=== PATIENT | female | born 1950 | race Two or more races ===

== ENCOUNTER 2018-06-05 17:24 | Inpatient (IN) | payer OTHER ==
[~2018-06-05] VITALS: Ht 152.4 cm; Wt 89.8 kg
[2018-06-05 17:43] VITALS: BP 116/67
[2018-06-05] MEDS ORDERED: Morphine Sulfate 4mg/ml Inj (IV USE ONLY) IVP ONE (18:00)
[2018-06-05] MEDS ORDERED: Isovue-300 100ml vial INJ PRN (18:15)
--- NOTE | 2018-06-05 18:15 | Emergency Room Report ---
History of Present Illness General Chief Complaint: General Complaint Source: Patient Present Illness HPI 68-year-old female with history of hypertension diabetes presenting with abdominal pain. Patient had an elective ventral hernia repair today, started off laparoscopic and then had to be open. After the surgery patient has had intractable pain. Was given multiple pain medications however still with a lot of pain so she was sent to the emergency room. Complaining of nausea but no vomiting. Allergies: Coded Allergies: No Known Allergies (Unverified , 06/05/18) Patient History Past Medical History: see triage record Past Surgical History: none Pertinent Family History: none Reviewed Nursing Documentation: PMH: Agreed; PSxH: Agreed Review of Systems All Other Systems: negative except mentioned in HPI Physical Exam Vital Signs Date Time Temp Pulse Resp B/P (MAP) Pulse Ox O2 Delivery O2 Flow Rate FiO2 06/05/18 17:33 97.8 92 16 128/70 98 Simple Mask 97.9 Sp02 EP Interpretation: reviewed, normal General Appearance: alert, GCS 15, non-toxic, moderate distress Head: normocephalic, atraumatic Eyes: bilateral eye normal inspection, bilateral eye PERRL, bilateral eye EOMI ENT: normal ENT inspection, normal pharynx, normal voice, moist mucus membranes Neck: normal inspection, full range of motion, supple Respiratory: normal inspection, lungs clear, normal breath sounds, no respiratory distress, no retraction, no wheezing, speaking full sentences, chest symmetrical Cardiovascular #1: normal inspection, regular rate, rhythm, no edema, normal capillary refill Cardiovascular #2: 2+ radial (R), 2+ radial (L) Gastrointestinal: other - Surgical incision with dressing in place, abdomen generalized tenderness without rigidity, however has voluntary guarding Musculoskeletal: normal inspection, back normal, normal range of motion, non- tender Neurologic: normal inspection, alert, oriented x3, responsive, motor strength/ tone normal, sensory intact, normal gait, speech normal Psychiatric: normal inspection, judgement/insight normal, memory normal Skin: normal inspection, normal color, no rash, warm/dry, well hydrated, normal turgor Medical Decision Making Diagnostic Impression: Primary Impression: Abdominal pain Additional Impression: S/P repair of ventral hernia ER Course 68-year-old female with abdominal pain, today had an elective hernia repair DDX: Postop pain versus bowel perforation versus other complication Plan: Obtain labs, ua, EKG, CXR CT ER course: Patient has been given Zofran and morphine Remained stabled in ED informed Dr Lynch from surgery abx given empirically Disposition: Patient is to be admitted to telemetry D/W hospitalist DR SHELLEY Please note that this Emergency Department Report was dictated using [employer] building technology software, occasionally this can lead to erroneous entry secondary to interpretation by the dictation equipment. EKG Diagnostic Results EP Interpretation: Yes Rate: normal Rhythm: NSR ST Segments: No acute changes ASA given to patient: No Rhythm Strip EP Interpretation: Yes Rate: 99 Rhythm: NSR, no PVCs, no ectopy Chest X-ray CXR: Ordered: Yes 1 view Indication: PAIN EP interpretation: Yes Interpretation: No consolidation, no effusion, no PTX, no acute cardiopulmonary disease Impression: No acute disease Electronically signed by Blossom Del Rosario MD Laboratory Tests Test 06/05/18 17:40 White Blood Count 19.7 K/UL (4.8-10.8) H Red Blood Count 4.67 M/UL (4.20-5.40) Hemoglobin 12.1 G/DL (12.0-16.0) Hematocrit 38.1 % (37.0-47.0) Mean Corpuscular Volume 81 FL (80-99) Mean Corpuscular Hemoglobin 25.9 PG (27.0-31.0) L Mean Corpuscular Hemoglobin Concent 31.8 G/DL (32.0-36.0) L Red Cell Distribution Width 15.5 % (11.6-14.8) H Platelet Count 276 K/UL (150-450) Mean Platelet Volume 6.3 FL (6.5-10.1) L Neutrophils (%) (Auto) % (45.0-75.0) Lymphocytes (%) (Auto) % (20.0-45.0) Monocytes (%) (Auto) % (1.0-10.0) Eosinophils (%) (Auto) % (0.0-3.0) Basophils (%) (Auto) % (0.0-2.0) Neutrophils % (Manual) Pending Lymphocytes % (Manual) Pending Platelet Estimate Pending Platelet Morphology Pending Sodium Level 138 MMOL/L (136-145) Potassium Level 4.7 MMOL/L (3.5-5.1) Chloride Level 105 MMOL/L (98-107) Carbon Dioxide Level 23 MMOL/L (21-32) Anion Gap 10 mmol/L (5-15) Blood Urea Nitrogen 20 mg/dL (7-18) H Creatinine 1.0 MG/DL (0.55-1.30) Estimate Glomerular Filtration Rate 55.1 mL/min (>60) Glucose Level 326 MG/DL (74-106) H Lactic Acid Level 2.70 mmol/L (0.4-2.0) H Calcium Level 7.9 MG/DL (8.5-10.1) L Total Bilirubin 0.3 MG/DL (0.2-1.0) Aspartate Amino Transferase (AST) 20 U/L (15-37) Alanine Aminotransferase (ALT) 16 U/L (12-78) Alkaline Phosphatase 83 U/L (46-116) Total Protein 6.7 G/DL (6.4-8.2) Albumin 3.2 G/DL (3.4-5.0) L Globulin 3.5 g/dL Albumin/Globulin Ratio 0.9 (1.0-2.7) L Lipase 103 U/L (73-393) CT/MRI/US Diagnostic Results CT/MRI/US Diagnostic Results : Imaging Test Ordered: CT ABD PELVIS Impression CT ABDOMEN & PELVIS With Contrast: Comparison: None available Bilateral lower lobe and bibasilar infiltrative and mild consolidative pulmonary opacities. Possibility of pneumonia must be considered. Postsurgical changes involving the anterior abdominal wall with midline surgical skin yuliet. Areas of subcutaneous soft tissue density and soft tissue stranding most prominent along the midline mid to lower anterior abdominal wall and left mid abdominal wall. There are multiple soft tissue gas locules identified involving the anterior abdominal wall soft tissues and minimal about region of rectus muscle on the left. Findings most likely reflect post surgical changes although infection cannot be excluded. Small amount of pneumoperitoneum which is also likely postsurgical although gastrointestinal perforation would be a differential possibility. Clinical correlation with surgical history recommended. Soft tissue stranding involving the omentum and mesentery in the mid and lower abdomen which may reflect postsurgical findings or could reflect edematous or inflammatory changes. Small amount of abdominal-pelvic free fluid. No discrete abscess collection identified. No evidence of bowel obstruction. Hepatic fatty infiltration. Mild distention of urinary bladder. Last Vital Signs Date Time Temp Pulse Resp B/P (MAP) Pulse Ox O2 Delivery O2 Flow Rate FiO2 8/21/18 18:11 96.8 06/05/18 17:43 97 19 116/67 98 Simple Mask Disposition: ADMITTED INPATIENT Condition: Serious Blossom Del Rosario M.D. Jun 05, 2018 18:15
[2018-06-05 18:24] LABS: HEMATOCRIT 38.1 % (37.0-47.0); HEMOGLOBIN 12.1 G/DL (12.0-16.0); MEAN CORPUSCULAR VOLUME 81 FL (80-99); PLATELET COUNT 276 K/UL (150-450); RED BLOOD COUNT 4.67 M/UL (4.20-5.40); RED CELL DISTRIBUTION WIDTH 15.5 % (11.6-14.8); WHITE BLOOD COUNT 19.7 K/UL (4.8-10.8)
[2018-06-05 18:27] LABS: ANION GAP 10 mmol/L (5-15); BLOOD UREA NITROGEN 20 mg/dL (7-18); CALCIUM 7.9 MG/DL (8.5-10.1); CARBON DIOXIDE 23 MMOL/L (21-32); CHLORIDE 105 MMOL/L (98-107); POTASSIUM 4.7 MMOL/L (3.5-5.1); SODIUM 138 MMOL/L (136-145)
[2018-06-05 18:31] LABS: ALANINE AMINOTRANSFERASE 16 U/L (12-78); ALBUMIN 3.2 G/DL (3.4-5.0); ALBUMIN/GLOBULIN RATIO 0.9 (1.0-2.7); ALKALINE PHOSPHATASE 83 U/L (46-116); ASPARTATE AMINO TRANSFERASE 20 U/L (15-37); BILIRUBIN,TOTAL 0.3 MG/DL (0.2-1.0)
[2018-06-05] MEDS ORDERED: Piperacillin/Tazobactam 3.375 GM in NS 55 ML IV ONE (18:45)
[2018-06-05] MEDS ORDERED: METFORMIN HCL500 M1 ORAL (19:21)
[2018-06-05] MEDS ORDERED: GLUCOTROL10 MG ORAL (19:51)
[2018-06-05] MEDS ORDERED: ACTOS30 MG ORAL (19:51)
[2018-06-05] MEDS ORDERED: METFORMIN HCL850 M1 ORAL (19:51)
[2018-06-05] MEDS ORDERED: BENAZEPRIL HCL20 MG ORAL (19:51)
[2018-06-05] MEDS ORDERED: ceFAZolin 1gm/50ml Premix 50 ML IV SCH (21:00)
[2018-06-05] MEDS: Heparin 5000 units/ml inj SUBQ SCH (22:00)
[2018-06-05 22:45] VITALS: BP 102/66
[2018-06-05] MEDS ORDERED: Morphine Sulfate 4mg/ml Inj (IV USE ONLY) IM PRN (22:45)
[2018-06-05 23:06] LABS: APPEARANCE,URINE CLEAR; BILIRUBIN, URINE NEGATIVE (NEGATIVE); COLOR,URINE PALE YELLOW; GLUCOSE, URINE (UA) 4+ (NEGATIVE); KETONES,URINE 1+ (NEGATIVE); LEUKOCYTE ESTERASE ,URINE NEGATIVE (NEGATIVE); NITRITE,URINE NEGATIVE (NEGATIVE); PH,URINE 5 (4.5-8.0); PROTEIN,URINE NEGATIVE (NEGATIVE); UROBILINOGEN,URINE NORMAL MG/DL (0.0-1.0)
[2018-06-05] MEDS ORDERED: Morphine Sulfate 2mg/ml Inj(IV/IM USE ONLY) IM PRN (23:45)
[2018-06-06] VITALS: BP 107/69
[2018-06-06] MEDS ORDERED: Levemir Flexpen SUBQ SCH (00:15)
[2018-06-06] MEDS: Morphine Sulfate 4mg/ml Inj (IV USE ONLY) IVP PRN ×3 (01:05→21:02)
[2018-06-06] MEDS: ceFAZolin sod 1 GM in NS 55 ML IVP SCH ×2 (01:31→09:11)
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
[2018-06-06 04:00] VITALS: BP 103/61
--- NOTE | 2018-06-06 05:02 | History and Physical Report ---
DATE OF ADMISSION: 06/05/2018 REASON FOR ADMISSION: Postoperative pain control. HISTORY OF PRESENT ILLNESS: This is an unfortunate female who is status post hernia surgery. The patient was supposed to undergo a laparoscopic guidance surgery, but apparently it was not able to do the surgery laparoscopically. The patient had open surgery. Postoperatively, the patient had pain, and subsequently has been transferred for evaluation and care. While being in the hospital, she was feeling good. Initially, she was nauseated. She is no longer nauseated. PAST MEDICAL HISTORY: 1. Diabetes. 2. Hypertension. 3. Obesity. MEDICATIONS: 1. Actos. 2. Metformin. PHYSICAL EXAMINATION: VITAL SIGNS: Temperature 96.8 degrees, pulse of 97, respirations 19, blood pressure 115/67, and pulse oximetry of 98% on room air. GENERAL: Not in acute distress. HEENT: Normocephalic and atraumatic. NECK: No JVD. No carotid bruit. HEART: S1 and S2. ABDOMEN: The patient has a slightly has a tinge of blood on it. Decreased bowel sounds. EXTREMITIES: No clubbing or cyanosis. LABORATORY DATA: Laboratory data obtained was reviewed. WBC 19.7, hematocrit 38.1, and platelets 276. Lactic acid is 2.7. Sodium 138, potassium 4.2, chloride 105, bicarbonate 23, BUN 20, creatinine 1.1, glucose 326, and calcium 7.9. Albumin 3.2 and lipase is 103. IMPRESSION AND PLAN: This is a 68-year-old female with history of diabetes, obesity, status post hernia surgery that was supposed to be laparoscopic, subsequently became open and has been admitted for pain control. The patient will get a CT scan to monitor the patient closely. Admitted to a monitored bed. Pain Management to see the patient and surgical consultation will be obtained if there is any surgical issue. Pain control. DVT prophylaxis with heparin. Cefazolin IV for preoperative antibiotic prophylaxis. Discussed with the ER. Diabetes. Put her on clear liquid and add as tolerated. Sliding scale will be given to the patient. IV fluids will be given to the patient. Jaret Lee M.D. DR: JULIAN JOB#: [id number] CC: BROOKS
[2018-06-06] MEDS: NovoLOG Insulin Flexpen SUBQ SCH ×4 (05:44→21:00)
[2018-06-06] MEDS: Heparin 5000 units/ml inj SUBQ SCH ×3 (06:00→22:00)
[2018-06-06 08:00] VITALS: BP 112/60
[2018-06-06 09:25] LABS: BASOPHILS % (AUTO) 0.3 % (0.0-2.0); HEMATOCRIT 34.1 % (37.0-47.0); HEMOGLOBIN 10.8 G/DL (12.0-16.0); LYMPHOCYTES % (AUTO) 8.1 % (20.0-45.0); MEAN CORPUSCULAR VOLUME 79 FL (80-99); NEUTROPHILS % (AUTO) 82.7 % (45.0-75.0); PLATELET COUNT 255 K/UL (150-450); RED CELL DISTRIBUTION WIDTH 15.6 % (11.6-14.8)
[2018-06-06 09:47] LABS: ANION GAP 11 mmol/L (5-15); BLOOD UREA NITROGEN 19 mg/dL (7-18); CALCIUM 7.9 MG/DL (8.5-10.1); CARBON DIOXIDE 23 MMOL/L (21-32); CHLORIDE 105 MMOL/L (98-107); POTASSIUM 3.9 MMOL/L (3.5-5.1); SODIUM 139 MMOL/L (136-145)
[2018-06-06 09:51] LABS: ALANINE AMINOTRANSFERASE 17 U/L (12-78); ALBUMIN 2.7 G/DL (3.4-5.0); ALBUMIN/GLOBULIN RATIO 0.7 (1.0-2.7); ALKALINE PHOSPHATASE 65 U/L (46-116); BILIRUBIN,TOTAL 0.4 MG/DL (0.2-1.0)
[2018-06-06] MEDS: Ketorolac 30mg Inj IV SCH ×3 (10:00→23:57)
[2018-06-06 10:05] LABS: ASPARTATE AMINO TRANSFERASE 29 U/L (15-37)
--- NOTE | 2018-06-06 10:38 | Diagnostic Imaging Report ---
Clinical Indication: Abdominal pain, history of ventral hernia repair of the same day Technique: No oral contrast utilized, per emergency room physician request IV administration nonionic contrast. Venous phase spiral acquisition obtained through the abdomen and pelvis. Multiplanar reconstructions were generated. Total dose length product 1075.85 mGycm. CTDIvol(s) 19.75 mGy. Dose reduction achieved using automated exposure control Comparison: none Findings: There are midline skin yuliet below the umbilicus. Air bubbles are seen within the subcutaneous fat and within the rectus musculature. A few air bubbles are seen within the peritoneal space anterior to the transverse colon. There is a small amount of infiltration of the subcutaneous fat centrally. There is also a slight degree of infiltration of the fat of the transverse mesocolon. A single small air bubble is seen at the serosal surface of the transverse colon. There is equivocal minimal wall thickening of the transverse colon in this region. No unusual fluid collections are evident. The appendix is normal. No evidence of diverticulosis or diverticulitis. Trace fluid is seen within the pelvis and adjacent to the right lobe of the liver. No small bowel distention. There is a small sliding-type hiatal hernia. Distal esophagus and stomach are otherwise unremarkable. The duodenum is unremarkable The liver is minimally hypoattenuating. No focal abnormality. Gallbladder, bile ducts are unremarkable. There is very slight increased attenuation of the fat adjacent to the pancreatic head and equivocally slightly decreased pancreatic tail and body enhancement. The spleen, adrenals are unremarkable. A cyst is seen in the left kidney. Subcentimeter low-attenuation lesions are seen in the kidneys bilaterally which are too small to characterize. No retroperitoneal or mesenteric mass or adenopathy. No pelvic mass or adenopathy. The bladder is somewhat distended. There is a small fat-containing right inguinal hernia. Atelectatic changes and/or scarring are seen at both lung bases. The bones demonstrate degenerative spondylosis changes. There are some degenerative changes of the right hip. Impression: Postsurgical changes of the anterior abdominal wall, as described Small pneumoperitoneum, most likely related to recent surgical exposure. Bowel perforation cannot completely excludable but much less likely Infiltration of the transverse mesocolon, presumably related to the recent surgery. Trace free intraperitoneal fluid, most likely postsurgical Mild infiltration of the peripancreatic fat near the pancreatic head, early pancreatitis possible. Correlate with clinical findings Bilateral basilar pulmonary parenchymal atelectasis and/or scarring Mild fatty liver Left renal cyst. Subcentimeter low-attenuation bilateral renal lesions, too small to characterize, most likely benign simple cysts. No further follow-up necessary This agrees with the preliminary interpretation provided overnight by [facility] teleradiology service. The CT scanner at [facility] is accredited by the [employer] and the scans are performed using protocols designed to limit radiation exposure to as low as reasonably achievable to attain images of sufficient resolution adequate for diagnostic evaluation.
[2018-06-06 12:00] VITALS: BP 114/63
--- NOTE | 2018-06-06 12:14 | Consultation ---
History of Present Illness General Date patient seen: Jun 06, 2018 Chief Complaint: General Complaint Reason for Consultation: abdominal pain Present Illness HPI 68F scheduled to undergo lap ventral hernia repair at outpatient surgical center which was noted to be more complex than anticipated and required open repair to ensure patients safety. After surgery was taken to [facility] [place] for [place] and care given open surgery. Patient admitted for post operative care and surgery called to assist with care and management. patient seen, chart reviewed , patient examined. spoke with patients surgeon to discuss case and care. currently complaining of incisional pain. labs and CT noted upon admission. Allergies: Coded Allergies: No Known Allergies (Unverified , 06/05/18) Medication History Scheduled Benazepril Hcl* (Benazepril Hcl*), 20 MG ORAL DAILY, (Reported) Glipizide* (Glucotrol*), 20 MG ORAL BID, (Reported) Metformin Hcl* (Metformin Hcl*), 850 MG ORAL TID, (Reported) Pioglitazone Hcl* (Actos*), 30 MG ORAL DAILY, (Reported) Discontinued Medications Metformin Hcl* (Metformin Hcl*), 500 MG ORAL TID, (Reported) Discontinued Reason: Prescription changed Patient History History Provided By: Patient, Medical Record, PMD Healthcare decision maker Resuscitation status Full Code Advanced Directive on File No Past Medical/Surgical History Past Medical/Surgical History: (1) Abdominal pain (2) S/P repair of ventral hernia Review of Systems Constitutional: Denies: no symptoms, see HPI, chills, sweats, fever, malaise, weakness, other Eye: Denies: no symptoms, see HPI, eye pain, blurred vision, tearing, double vision, nose pain, nose congestion, acuity changes, discharge, other ENT: Denies: no symptoms, see HPI, ear pain, ear discharge, nose pain, nose congestion, throat pain, throat swelling, mouth pain, hearing loss, nasal discharge, other Respiratory: Denies: no symptoms, see HPI, cough, orthopnea, shortness of breath, stridor, wheezing, PALMER, sputum, other Cardiovascular: Denies: no symptoms, see HPI, chest pain, edema, palpitations, syncope, PND, other Gastrointestinal: Reports: abdominal pain, nausea, vomiting Genitourinary: Denies: no symptoms, see HPI, discharge, dysuria, frequency, hematuria, pain, retention, incontinence, urgency, vag bleed/dc, other Musculoskeletal: Denies: no symptoms, see HPI, back pain, gout, joint pain, joint swelling, muscle pain, muscle stiffness, other Skin: Denies: no symptoms, see HPI, rash, change in color, change in hair/nails , dryness, lesions, other Psychiatric: Denies: no symptoms, see HPI, prior hx, anxiety, depressed feelings, emotional problems, SI, HI, hallucinations, other Neurological: Denies: no symptoms, see HPI, headache, numbness, paresthesia, seizure, tingling, tremors, focal weakness, syncope, dizziness, other Endocrine: Denies: no symptoms, see HPI, excessive sweating, flushing, intolerance to temperature, increased thirst, increased urine, unexplained weight loss, other Hematologic/Lymphatic: Denies: no symptoms, see HPI, anemia, blood clots, easy bleeding, easy bruising, swollen glands, diathesis, other Physical Exam General Appearance: no apparent distress Lines, tubes and drains: peripheral HEENT: atraumatic, mucous membranes moist Neck: supple, normal inspection Respiratory/Chest: normal breath sounds, no respiratory distress, no accessory muscle use Cardiovascular/Chest: normal peripheral pulses, normal rate Abdomen: soft, hypoactive bowel sounds, distended, tender Extremities: normal range of motion, non-tender Skin Exam: normal pigmentation, warm/dry Neurologic: alert, oriented x 3 Last 24 Hour Vital Signs Date Time Temp Pulse Resp B/P (MAP) Pulse Ox O2 Delivery O2 Flow Rate FiO2 06/06/18 08:00 104 06/06/18 08:00 97.5 94 19 112/60 (77) 95 97.5 06/06/18 04:00 97.7 99 19 103/61 (75) 98 97.7 06/06/18 04:00 99 06/06/18 00:00 98.0 104 20 107/69 (82) 94 98.0 06/06/18 00:00 100 06/05/18 23:23 Room Air 06/05/18 23:16 Room Air 06/05/18 22:49 101 06/05/18 22:45 96.8 102 24 102/66 95 Room Air 96.8 06/05/18 22:45 96.8 102 24 102/66 95 Room Air 206.2 06/05/18 18:41 96.8 06/05/18 18:11 96.8 06/05/18 17:43 96.8 97 19 116/67 98 Simple Mask 96.8 06/05/18 17:33 97.8 92 16 128/70 98 Simple Mask 97.9 Intake and Output 06/05/18 06/06/18 19:00 07:00 Intake Total 1055 ml Balance 1055 ml IV Total 1055 ml # Voids 4 Laboratory Tests Test 06/05/18 17:40 06/05/18 22:28 06/05/18 22:31 06/05/18 23:59 White Blood Count 19.7 K/UL (4.8-10.8) H Red Blood Count 4.67 M/UL (4.20-5.40) Hemoglobin 12.1 G/DL (12.0-16.0) Hematocrit 38.1 % (37.0-47.0) Mean Corpuscular Volume 81 FL (80-99) Mean Corpuscular Hemoglobin 25.9 PG (27.0-31.0) L Mean Corpuscular Hemoglobin Concent 31.8 G/DL (32.0-36.0) L Red Cell Distribution Width 15.5 % (11.6-14.8) H Platelet Count 276 K/UL (150-450) Mean Platelet Volume 6.3 FL (6.5-10.1) L Neutrophils (%) (Auto) % (45.0-75.0) Lymphocytes (%) (Auto) % (20.0-45.0) Monocytes (%) (Auto) % (1.0-10.0) Eosinophils (%) (Auto) % (0.0-3.0) Basophils (%) (Auto) % (0.0-2.0) Differential Total Cells Counted 100 Neutrophils % (Manual) 85 % (45-75) H Lymphocytes % (Manual) 6 % (20-45) L Monocytes % (Manual) 4 % (1-10) Eosinophils % (Manual) 0 % (0-3) Basophils % (Manual) 0 % (0-2) Band Neutrophils 5 % (0-8) Platelet Estimate Adequate Platelet Morphology Normal Red Blood Cell Morphology Normal Sodium Level 138 MMOL/L (136-145) Potassium Level 4.7 MMOL/L (3.5-5.1) Chloride Level 105 MMOL/L (98-107) Carbon Dioxide Level 23 MMOL/L (21-32) Anion Gap 10 mmol/L (5-15) Blood Urea Nitrogen 20 mg/dL (7-18) H Creatinine 1.0 MG/DL (0.55-1.30) Estimat Glomerular Filtration Rate 55.1 mL/min (>60) Glucose Level 326 MG/DL (74-106) H Lactic Acid Level 2.70 mmol/L (0.4-2.0) H 2.30 mmol/L (0.66-2.22) H 1.90 mmol/L (0.4-2.0) Calcium Level 7.9 MG/DL (8.5-10.1) L Total Bilirubin 0.3 MG/DL (0.2-1.0) Aspartate Amino Transf (AST/SGOT) 20 U/L (15-37) Alanine Aminotransferase (ALT/SGPT) 16 U/L (12-78) Alkaline Phosphatase 83 U/L (46-116) Total Protein 6.7 G/DL (6.4-8.2) Albumin 3.2 G/DL (3.4-5.0) L Globulin 3.5 g/dL Albumin/Globulin Ratio 0.9 (1.0-2.7) L Lipase 103 U/L (73-393) Urine Color Pale yellow Urine Appearance Clear Urine pH 5 (4.5-8.0) Urine Specific [place] 1.015 (1.005-1.035) Urine Protein Negative (NEGATIVE) Urine Glucose (UA) 4+ (NEGATIVE) H Urine Ketones 1+ (NEGATIVE) H Urine Occult Blood 1+ (NEGATIVE) H Urine Nitrite Negative (NEGATIVE) Urine Bilirubin Negative (NEGATIVE) Urine Urobilinogen Normal MG/DL (0.0-1.0) Urine Leukocyte Esterase Negative (NEGATIVE) Urine RBC 2-4 /HPF (0 - 2) H Urine WBC 0-2 /HPF (0 - 2) Urine Squamous Epithelial Cells Few /LPF (NONE/OCC) Urine Bacteria None /HPF (NONE) Test 06/06/18 09:05 White Blood Count 12.0 K/UL (4.8-10.8) H Red Blood Count 4.30 M/UL (4.20-5.40) Hemoglobin 10.8 G/DL (12.0-16.0) L Hematocrit 34.1 % (37.0-47.0) L Mean Corpuscular Volume 79 FL (80-99) L Mean Corpuscular Hemoglobin 25.1 PG (27.0-31.0) L Mean Corpuscular Hemoglobin Concent 31.7 G/DL (32.0-36.0) L Red Cell Distribution Width 15.6 % (11.6-14.8) H Platelet Count 255 K/UL (150-450) Mean Platelet Volume 6.5 FL (6.5-10.1) Neutrophils (%) (Auto) 82.7 % (45.0-75.0) H Lymphocytes (%) (Auto) 8.1 % (20.0-45.0) L Monocytes (%) (Auto) 9.0 % (1.0-10.0) Eosinophils (%) (Auto) 0.0 % (0.0-3.0) Basophils (%) (Auto) 0.3 % (0.0-2.0) Sodium Level 139 MMOL/L (136-145) Potassium Level 3.9 MMOL/L (3.5-5.1) Chloride Level 105 MMOL/L (98-107) Carbon Dioxide Level 23 MMOL/L (21-32) Anion Gap 11 mmol/L (5-15) Blood Urea Nitrogen 19 mg/dL (7-18) H Creatinine 1.0 MG/DL (0.55-1.30) Estimat Glomerular Filtration Rate 55.1 mL/min (>60) Glucose Level 283 MG/DL (74-106) H Calcium Level 7.9 MG/DL (8.5-10.1) L Total Bilirubin 0.4 MG/DL (0.2-1.0) Aspartate Amino Transf (AST/SGOT) 29 U/L (15-37) Alanine Aminotransferase (ALT/SGPT) 17 U/L (12-78) Alkaline Phosphatase 65 U/L (46-116) Total Protein 6.4 G/DL (6.4-8.2) Albumin 2.7 G/DL (3.4-5.0) L Globulin 3.7 g/dL Albumin/Globulin Ratio 0.7 (1.0-2.7) L Height (Feet): 5 Height (Inches): 4.00 Weight (Pounds): 198 Medications Current Medications Medications (Trade) Dose Ordered Sig/Som Route PRN Reason Start Time Stop Time Status Last Admin Dose Admin Acetaminophen/ Hydrocodone Bitart ([place] 10/325) 1 tab Q3HR PRN ORAL Pain Scale (3-5) 06/06/18 12:45 06/13/18 12:44 Al Hydroxide/Mg Hydroxide (Mylanta) 30 ml Q6H PRN ORAL GERD 06/05/18 22:45 07/05/18 22:44 Cetylpyridinium Chloride (Cepacol) 1 lozg EVERY 2 HOURS PRN RAMOS SORE THROAT 06/05/18 22:45 07/05/18 22:44 Clonidine HCl (Catapres Tab) 0.1 mg Q8HR PRN ORAL For High Blood Pressure 06/05/18 22:45 07/05/18 22:44 Dextrose (Dextrose 50%) 25 ml STAT PRN IV Hypoglycemia 06/06/18 00:00 07/06/18 00:00 Dextrose (Dextrose 50%) 50 ml STAT PRN IV Hypoglycemia 06/06/18 00:00 07/06/18 00:00 Diphenhydramine HCl (Benadryl) 25 mg Q6H PRN ORAL Itching 06/05/18 22:45 07/05/18 22:44 Famotidine (Pepcid I.v.) 20 mg Q12HR IVP 06/05/18 22:53 07/05/18 22:52 06/06/18 09:10 Heparin Sodium (Porcine) (Heparin 5000 units/ml) 5,000 units EVERY 8 HOURS SUBQ 06/05/18 22:00 07/05/18 21:59 Insulin Aspart (NovoLOG) BEFORE MEALS AND HS SUBQ 06/06/18 06:30 07/06/18 06:29 06/06/18 05:44 Ketorolac Tromethamine (Toradol 30mg) 30 mg Q6HR IV 06/06/18 10:00 06/11/18 09:59 Morphine Sulfate (Morphine Sulfate) 3 mg Q3H PRN IVP Severe Breakthru Pain (>7) 06/05/18 22:45 06/12/18 22:44 06/06/18 08:56 Morphine Sulfate (Morphine Sulfate) 4 mg Q3H PRN IM 07/25 PAIN 06/05/18 23:45 06/12/18 23:44 Ondansetron HCl (Zofran) 4 mg Q4HR PRN IVP Nausea & Vomiting 06/05/18 22:45 07/05/18 22:44 Pioglitazone HCl (Actos) 15 mg ACBREAKFAST ORAL 06/06/18 06:30 07/06/18 06:29 06/06/18 05:43 Piperacillin Sod/ Tazobactam Sod 3.375 gm/Sodium Chloride 110 ml @ 27.5 mls/hr EVERY 8 HOURS IVPB 06/06/18 14:00 06/11/18 13:59 Promethazine HCl (Phenergan) 12.5 mg Q8HR PRN IM Nausea & Vomiting 06/05/18 22:45 07/05/18 22:44 Assessment/Plan Problem List: (1) Abdominal pain Assessment & Plan: recovering from open ventral hernia repair afebrile, HD stable exam with incisional tenderness as anticipated leukocytosis resolving. pain improving wound will likely form seroma. will monitor for now okay for clears. may develop ileus. pain control ambulate and out of bed incentive spirometry thank you ICD Codes: R10.9 - Unspecified abdominal pain SNOMED: [id number], [id number], [id number] (2) S/P repair of ventral hernia ICD Codes: Z98.890 - Other specified postprocedural states; Z87.19 - Personal history of other diseases of the digestive system SNOMED: [id number], [id number], [id number] Status: stable CrisGus Jun 06, 2018 12:14
[2018-06-06] MEDS ORDERED: Tylenol #3 tab (300mg/30mg) ORAL PRN ×2 (12:45→14:15)
[2018-06-06] MEDS ORDERED: HYDROcodone/Acetamin 10/325 tab ORAL PRN (12:45)
[2018-06-06] MEDS ORDERED: Norco 5mg/325mg tab ORAL PRN (14:15)
[2018-06-06] MEDS ORDERED: Tylenol #3 tab (300mg/30mg) ORAL ONE (14:15)
[2018-06-06] MEDS: Piperacillin/Tazobactam 3.375 GM in NS 110 ML IVPB SCH ×2 (14:36→21:02)
--- NOTE | 2018-06-06 15:18 | General Progress Note ---
Assessment/Plan Status Narrative s/p hernia repair paincontrol increawse ambulation doing well Assessment/Plan ancef iv scd followclosley diet per surgery Subjective Date patient seen: Jun 06, 2018 Time patient seen: 15:17 Allergies: Coded Allergies: No Known Allergies (Unverified , 06/05/18) Subjective doin gbetter no fevenohcills no harmony stpain no palpiation has pain Objective Last 24 Hour Vital Signs Date Time Temp Pulse Resp B/P (MAP) Pulse Ox O2 Delivery O2 Flow Rate FiO2 06/06/18 12:00 97.5 94 20 114/63 (80) 95 97.5 06/06/18 12:00 100 06/06/18 08:00 104 06/06/18 08:00 97.5 94 19 112/60 (77) 95 97.5 06/06/18 04:00 97.7 99 19 103/61 (75) 98 97.7 06/06/18 04:00 99 06/06/18 00:00 98.0 104 20 107/69 (82) 94 98.0 06/06/18 00:00 100 06/05/18 23:23 Room Air 06/05/18 23:16 Room Air 06/05/18 22:49 101 06/05/18 22:45 96.8 102 24 102/66 95 Room Air 96.8 06/05/18 22:45 96.8 102 24 102/66 95 Room Air 206.2 06/05/18 18:41 96.8 06/05/18 18:11 96.8 06/05/18 17:43 96.8 97 19 116/67 98 Simple Mask 96.8 06/05/18 17:33 97.8 92 16 128/70 98 Simple Mask 97.9 Intake and Output 06/05/18 06/06/18 19:00 07:00 Intake Total 1055 ml Balance 1055 ml IV Total 1055 ml # Voids 4 Laboratory Tests 06/05/18 17:40: White Blood Count 19.7H, Red Blood Count 4.67, Hemoglobin 12.1, Hematocrit 38.1 , Mean Corpuscular Volume 81, Mean Corpuscular Hemoglobin 25.9L, Mean Corpuscular Hemoglobin Concent 31.8L, Red Cell Distribution Width 15.5H, Platelet Count 276, Mean Platelet Volume 6.3L, Neutrophils (%) (Auto) , Lymphocytes (%) (Auto) , Monocytes (%) (Auto) , Eosinophils (%) (Auto) , Basophils (%) (Auto) , Differential Total Cells Counted 100, Neutrophils % ( Manual) 85H, Lymphocytes % (Manual) 6L, Monocytes % (Manual) 4, Eosinophils % ( Manual) 0, Basophils % (Manual) 0, Band Neutrophils 5, Platelet Estimate Adequate, Platelet Morphology Normal, Red Blood Cell Morphology Normal, Sodium Level 138, Potassium Level 4.7, Chloride Level 105, Carbon Dioxide Level 23, Anion Gap 10, Blood Urea Nitrogen 20H, Creatinine 1.0, Estimat Glomerular Filtration Rate 55.1, Glucose Level 326H, Lactic Acid Level 2.70H, Calcium Level 7.9L, Total Bilirubin 0.3, Aspartate Amino Transf (AST/SGOT) 20, Alanine Aminotransferase (ALT/SGPT) 16, Alkaline Phosphatase 83, Total Protein 6.7, Albumin 3.2L, Globulin 3.5, Albumin/Globulin Ratio 0.9L, Lipase 103 06/05/18 22:28: Lactic Acid Level 2.30H 06/05/18 22:31: Urine Color Pale yellow, Urine Appearance Clear, Urine pH 5, Urine Specific [place] 1.015, Urine Protein Negative, Urine Glucose (UA) 4+H, Urine Ketones 1+H , Urine Occult Blood 1+H, Urine Nitrite Negative, Urine Bilirubin Negative, Urine Urobilinogen Normal, Urine Leukocyte Esterase Negative, Urine RBC 2-4H, Urine WBC 0-2, Urine Squamous Epithelial Cells Few, Urine Bacteria None 06/05/18 23:59: Lactic Acid Level 1.90 06/06/18 09:05: White Blood Count 12.0H, Red Blood Count 4.30, Hemoglobin 10.8L, Hematocrit 34.1L, Mean Corpuscular Volume 79L, Mean Corpuscular Hemoglobin 25.1L, Mean Corpuscular Hemoglobin Concent 31.7L, Red Cell Distribution Width 15.6H, Platelet Count 255, Mean Platelet Volume 6.5, Neutrophils (%) (Auto) 82.7H, Lymphocytes (%) (Auto) 8.1L, Monocytes (%) (Auto) 9.0, Eosinophils (%) (Auto) 0.0, Basophils (%) (Auto) 0.3, Sodium Level 139, Potassium Level 3.9, Chloride Level 105, Carbon Dioxide Level 23, Anion Gap 11, Blood Urea Nitrogen 19H, Creatinine 1.0, Estimat Glomerular Filtration Rate 55.1, Glucose Level 283H, Calcium Level 7.9L, Total Bilirubin 0.4, Aspartate Amino Transf (AST/SGOT) 29, Alanine Aminotransferase (ALT/SGPT) 17, Alkaline Phosphatase 65, Total Protein 6.4, Albumin 2.7L, Globulin 3.7, Albumin/Globulin Ratio 0.7L Height (Feet): 5 Height (Inches): 4.00 Weight (Pounds): 198 General Appearance: WD/WN Neck: other - no jvd Cardiovascular: normal rate, regular rhythm Respiratory/Chest: lungs clear Jaret Lee MD Jun 06, 2018 15:18
[2018-06-06 16:00] VITALS: BP 128/68
--- NOTE | 2018-06-06 17:54 | Cardiology Report ---
APPROVED REPORT EKG Measurement Heart [id number] [place] [id number] Unusual P axis and short [place], probable junctional tachycardia Possible Inferior infarct, age undetermined Cannot rule out Anterior infarct, age undetermined Abnormal ECG
[2018-06-06 20:00] VITALS: BP 146/56
--- NOTE | 2018-06-06 21:58 | Progress Note ---
DATE: 06/06/2018 ACUTE PAIN MANAGEMENT PHYSICIAN PROGRESS NOTE MEDICATIONS: Medication administration record reviewed. Medications include Januvia, Phenergan, Actos, Zofran, morphine, Glucophage, Toradol, NovoLog insulin, [place], subcutaneous heparin, IV Pepcid, Benadryl, Catapres, Cepacol, Mylanta, Tylenol No. 3. LABORATORY STUDIES: From this morning, June 06, 2018, shows white count 12, hematocrit 34, platelets 255,000. Sodium 139, potassium 3.9, chloride 105, bicarbonate 23, BUN 19, creatinine 1.0, glucose 283, calcium 7.9, total bilirubin 0.4, AST 29, ALT 17, alkaline phosphatase 65, total protein 6.4, albumin 2.7. VITAL SIGNS: Pain level between 5/10 and 8/10 on the visual analog pain scale. Afebrile, pulse 94, respirations 20, blood pressure 114/63, oxygen saturation 95% on room air. I spent over 60 minutes in consultation today. I saw the patient at bedside with her son who interpreted Sinhala, and the patient's nurse. I also spoke with physical therapist, CECILIA Reece. The patient has been doing well. Overnight, the patient used the IV morphine with good analgesic effect. Her nausea symptoms have improved steadily, but she still has some mild nausea symptoms. She is tolerating clear liquids, hence I changed to diabetic clears due to her labile diabetes, which Dr. Jaret Lee is managing closely. The patient did tolerate diabetic clears for lunch and I have asked the nurse to trial with Tylenol No. 3 with Codeine for tolerability and efficacy. I will continue the morphine and it has two ordered doses of intravenous for moderate pain and intramuscular for 10/10 pain. The nurse will change the dressing after the surgeon, Dr. Lynch, evaluated the patient and cleared her to ambulate. Physical therapist, Chevy, will help encourage the patient to ambulate and a front-wheeled walker has already been left in the room. The patient's son and [id number] are at the bedside providing good social support and assistance with ambulation. The patient has been compliant using her incentive spirometer and her good breathing efforts have kept her afebrile postoperatively. I spoke with the hospital pharmacist, Anne, to adjust her narcotic doses so we can begin trialing oral agents to help transition her off of parenteral narcotics and optimize outpatient pain prescription when she does leave the hospital. At this point, she is still not passing flatus but is burping. We will continue her diet as recommended per the surgeon. Dr. Lee ordered sequential compression pneumatic devices for DVT prophylaxis. Additionally, the patient already has subcutaneous heparin 5000 units every [address] Lynch of surgery did recommend Toradol q.6 hours; however, the patient has been refusing this medication so far. Jaret Pryor M.D. DR: Kevin JOB#: [id number] CC:
[2018-06-07] VITALS: BP 108/62
[2018-06-07 04:00] VITALS: BP 114/65
[2018-06-07] MEDS: Ketorolac 30mg Inj IV SCH (05:25)
[2018-06-07] MEDS: Piperacillin/Tazobactam 3.375 GM in NS 110 ML IVPB SCH (05:26)
[2018-06-07 05:47] LABS: BASOPHILS % (AUTO) 0.5 % (0.0-2.0); EOSINOPHILS % (AUTO) 0.1 % (0.0-3.0); HEMATOCRIT 31.4 % (37.0-47.0); HEMOGLOBIN 9.9 G/DL (12.0-16.0); MEAN CORPUSCULAR VOLUME 80 FL (80-99); MONOCYTES % (AUTO) 6.8 % (1.0-10.0); NEUTROPHILS % (AUTO) 80.6 % (45.0-75.0); PLATELET COUNT 223 K/UL (150-450); RED BLOOD COUNT 3.94 M/UL (4.20-5.40); RED CELL DISTRIBUTION WIDTH 15.3 % (11.6-14.8); WHITE BLOOD COUNT 12.4 K/UL (4.8-10.8)
[2018-06-07] MEDS: Heparin 5000 units/ml inj SUBQ SCH (06:00)
[2018-06-07 06:07] LABS: ANION GAP 8 mmol/L (5-15); BLOOD UREA NITROGEN 18 mg/dL (7-18); CALCIUM 8.1 MG/DL (8.5-10.1); CARBON DIOXIDE 27 MMOL/L (21-32); CHLORIDE 104 MMOL/L (98-107); POTASSIUM 3.8 MMOL/L (3.5-5.1); SODIUM 139 MMOL/L (136-145)
[2018-06-07] MEDS: NovoLOG Insulin Flexpen SUBQ SCH (06:30)
[2018-06-07 08:00] VITALS: BP 112/57
--- NOTE | 2018-06-07 14:15 | Progress Note ---
DATE: 06/07/2018 ACUTE PAIN MANAGEMENT PHYSICIAN PROGRESS NOTE MEDICATIONS: Medication administration record reviewed. Medications include Januvia, Phenergan, Actos, Zofran, morphine, Toradol, NovoLog, [place], heparin, Pepcid, Benadryl, Catapres, Cepacol, and Mylanta. OBJECTIVE: VITAL SIGNS: From this morning, June 07, 2018, afebrile, pulse 80, respirations 22, blood pressure 112/57, and oxygen saturation 94% on room air. LABORATORY STUDIES: From this morning shows white blood cell count of 12.4, unchanged from yesterday 12.0, today's hematocrit 31 with a platelet of 223. Chemistry from this morning, June 07, 2018, showed sodium 139, potassium 3.8, chloride 104, bicarb 27, BUN 18, creatinine 1.0, glucose 199, and calcium 8.1. I saw the patient at the bedside with a [place] Korean-speaking freelance interpreter/translator, nurse Limon. I also discussed the case in detail with the surgeon, Dr. Lynch, and the attending physician, Dr. Jaret Lee. I spent over 60 minutes in consultation today. I spoke with the physical therapist, Chevy, who evaluated the patient yesterday on my request. The patient did extremely well, even walking up and downstairs. Today, she continues to do well with physical therapy training. The patient did start passing positive flatus. She has been tolerating her diabetic clear liquid without any nausea symptoms for the past 24 hours. The patient has been compliant using her incentive spirometer and has been moving in and out of bed to the chair frequently along with being on subcutaneous heparin for DVT prophylaxis. I did leave a prescription for Tylenol No. 3 with Codeine, quantity of 30 for outpatient usage. Although the patient does feel somewhat weak after her significant abdominal surgery, she does seem to have certainly turned the corner and may be a discharged to home candidate within the next 24 hours. I will defer discharge planning to the surgical scrub technologist Dr. Lynch and the attending Dr. Jaret Lee, to determine. Jaret Pryor M.D. : RODRIGO/JUAN DIEGO :45 JOB#: [id number] CC:
--- NOTE | 2018-06-08 01:30 | Discharge Summary ---
DATE OF ADMISSION: 06/05/2018 DATE OF DISCHARGE: 06/07/2018 HISTORY: The patient is status post hernia repair. It was supposed to be laparoscopic and then became open. Subsequently, postoperatively, the patient had pain and was admitted from a surgery standpoint for pain control. The patient was seen and evaluated, subsequently did well, able to tolerate fluids. The patient was discharged home with Tylenol No. 3 for pain and will follow up with Dr. barbosa for followup. Jaret Lee M.D. DR: JULIAN JOB#: [id number] CC: BROOKS
== END 2018-06-07 10:55 | disposition home or self-care (01) | DRG 948 ==
LOC: EDBEDREQ 18:41 → EMR 19:00 → 2E 19:07 → EDBEDREQ 20:11
DX: G89.18 Other acute postprocedural pain (principal); E11.9 Type 2 diabetes mellitus without complications; I10 Essential (primary) hypertension; E66.9 Obesity, unspecified; Z79.84 Long term (current) use of oral hypoglycemic drugs
CPT/HCPCS: 36415; 74177; 80048; 80053; 81003; 82962; 83605; 83690; 85007; 85025; 93005; 96365; 96367; 96375; 96376; 99285; J1815; J2405; S5561